=== PATIENT | male | born 1950 | race Caucasian/White ===

== ENCOUNTER 2019-02-03 08:51 | Outpatient (CLI) | payer MEDICARE, OTHER ==
--- NOTE | 2019-02-03 10:56 | ULT ---
BILATERAL RENAL ULTRASOUND WITH DOPPLER: Date: 02/03/19 HISTORY: Acute renal insufficiency and diabetes mellitus. FINDINGS: The right kidney measures 9.6 cm in length and the left kidney measures 10.6 cm in length. No focal m ass or hydronephrosis seen on either side. The urinary bladder is unremarkable. The peak systolic velocity in the right renal artery measures 70 cm/second and in the left renal bebo ry measures 81 cm/second. The renal artery to aortic ratio is measured at 1.09 on the right and 1.26 on the left. The resistive indices measure 0.58 on the right and 0.56 on the left. IMPRESSION: 1. Unremarkable renal ultrasound. 2. No evidence of hemodynamically significant stenosis. POS: [facility]
== END 2019-02-03 08:52 | disposition home or self-care (01) ==
LOC: ULT 08:51
PROVIDERS: ATTEND Internal Medicine Nephrology
DX: I12.9 Hypertensive chronic kidney disease with stage 1 through stage 4 chronic kidney disease, or unspecified chronic kidney disease (principal); E11.22 Type 2 diabetes mellitus with diabetic chronic kidney disease; N18.3 Chronic kidney disease, stage 3 (moderate); N17.9 Acute kidney failure, unspecified; I25.10 Atherosclerotic heart disease of native coronary artery without angina pectoris; E03.9 Hypothyroidism, unspecified; E78.5 Hyperlipidemia, unspecified
CPT/HCPCS: 76700; 76770

== ENCOUNTER 2020-04-06 12:21 | Outpatient (CLI) | payer MEDICARE, OTHER | END 2020-04-06 12:22 | disposition home or self-care (01) | LOC: LABBT 12:21 | PROVIDERS: ATTEND Orthopaedic Surgery | DX: Z01.812 Encounter for preprocedural laboratory examination (principal); Z11.59 Encounter for screening for other viral diseases; S52.502A Unspecified fracture of the lower end of left radius, initial encounter for closed fracture | CPT/HCPCS: 87635; U0003 ==

== ENCOUNTER 2020-04-08 09:38 | Day surgery (SDC) | payer MEDICARE, OTHER ==
[2020-04-06 15:17] VITALS: BMI 28.1
[2020-04-08] MEDS ORDERED: Fentanyl 100 MCG/2 ML VIAL ONE ×2 (10:30→10:42)
[2020-04-08] MEDS ORDERED: Midazolam HCl 2 mg/2 ml Vial ONE (10:42)
[2020-04-08 11:08] LABS: Anion Gap 13 mmol/L (10-20); BUN (Urea Nitrogen) 27 mg/dL (8.4-25.7); Calc. Creatinine Clearance 50 mL/min (70-130); Calcium 9.4 mg/dL (7.8-10.44); Carbon Dioxide 22 mmol/L (23-31); Chloride 106 mmol/L (98-107); Estimated GFR-MDRD 42; Glucose 112 mg/dL (80-115); Sodium 137 mmol/L (136-145)
--- NOTE | 2020-04-08 14:25 | RAD ---
LEFT WRIST 3 VIEWS: History ORIF left wrist. COMPARISON: Radiograph 01/03/2020. FINDINGS: Satisfactory postoperative appearance of the volar plate and screw fixation distal radial fracture. Similar appearance of the ulnar styloid fracture. IMPRESSION: Satisfactory postoperative appearance. POS: [facility]
[2020-04-08] MEDS ORDERED: Ondansetron PF 4 MG/2 ML Vial ONE (14:58)
[2020-04-08] MEDS ORDERED: EPHEDRINE 25 MG/5 ML SYRINGE ONE (14:58)
[2020-04-08] MEDS ORDERED: PROPOFOL 200 MG/20 ML VIAL ONE (14:58)
[2020-04-08] MEDS ORDERED: Lidocaine 1% PF 5 ML VIAL ONE (14:58)
[2020-04-08] MEDS ORDERED: Bupivacaine HCl 0.5%/Epinephrine 1:200,000/PF 30 ml Vial ONE (14:58)
--- NOTE | 2020-04-08 18:10 | EKG ---
Test Reason : PREOP Blood Pressure : / mmHG Vent. Rate : 067 BPM Atrial Rate : 067 BPM P-R Int : 136 ms QRS Dur : 096 ms QT Int : 390 ms P-R-T Axes : 038 -45 -07 degrees QTc Int : 412 ms Normal sinus rhythm Left axis deviation non specific T wave changes Abnormal ECG No previous ECGs available Confirmed by DR. Nubia GLASS ([id number]) on 04/08/2020 6:10:05 PM Referred By: ALBERTO Confirmed By:DR. Nubia GLASS
--- NOTE | 2020-04-09 08:57 | OP ---
DATE OF PROCEDURE: 04/08/2020 PREOPERATIVE DIAGNOSIS: Left extra-articular distal radius fracture (greater than 3 fragments). POSTOPERATIVE DIAGNOSIS: Left extra-articular distal radius fracture (greater than 3 fragments). PROCEDURE PERFORMED: Open reduction and internal fixation of right distal radius. ANESTHESIA: General and block. BUTCHER FISH: Ariel Berrios PA-C IMPLANT: Synthes 2.4 mm variable angle LCP 2-column plate. TOURNIQUET TIME: 44 minutes at 250 mmHg. COMPLICATIONS: None. DRAINS: None. SPECIMEN: None. OUTCOME: Near-anatomic alignment. INDICATIONS FOR PROCEDURE: The patient is a 69-year-old gentleman status post ground level fall sustaining a left extra-articular distal radius fracture with comminution and greater than 30 degrees of dorsal angulation. After discussion with the patient including risks and benefits, we have decided to proceed with open reduction and internal fixation. Informed consent has been obtained. I believe all questions have been answered. DESCRIPTION OF PROCEDURE: The patient was brought to the operating room and a time-out performed, followed by induction of general anesthesia. The patient was then positioned supine on the OR table with the arm on an armboard and then a sterile prep and drape was performed of this left upper extremity. Next, limb was exsanguinated with Esmarch bandage, tourniquet inflated to 250 mmHg. A volar radial skin incision was made after skin was sharply incised. Dissection was carried down between the interval of the flexor carpi radialis and brachioradialis. The neurovascular bundle was identified and reflected radially. The dissection was then carried down reflecting the flexor digitorum and exposing the pronator quadratus. This muscle was released off its radial border and reflected to the midline revealing the underlying fracture. The fracture was reduced under direct visualization, and then, a 2.4 mm variable angle LCP 2-column plate was applied to the volar cortex of the distal radius and held in place with a cortical screw proximal to the fracture. At this point, AP lateral C-arm images were obtained to confirm appropriate reduction of the fracture and appropriate positioning of the plate. Once confirmed, a total of 4 locking screws were placed in the horizontal limb of the plate capturing the distal fragment and then 2 additional cortical screws placed proximally. At the completion of this, there was islam of radial inclination, volar tilt, and radial length with appropriate positioning of hardware. The wound was then irrigated with bulb syringe and closed in layers with 0 Vicryl deep, followed by 2-0 Vicryl and nylon for the skin. Xeroform gauze, Webril, and fiberglass splint were applied to the wrist. The tourniquet was let down to completion of dressing and the patient was transferred to recovery room in stable condition. There were no complications. The patient tolerated the procedure well. Job ID: [id number]
== END 2020-04-08 14:45 | disposition home or self-care (01) ==
LOC: SDC 09:38
PROVIDERS: ATTEND Orthopaedic Surgery
PROC: 0PSJ04Z Reposition Left Radius with Internal Fixation Device, Open Approach (ICD-10-PCS; principal; 2020-04-08)
PROC: 3E0T3BZ Introduction of Anesthetic Agent into Peripheral Nerves and Plexi, Percutaneous Approach (ICD-10-PCS; 2020-04-08)
DX: S52.552A Other extraarticular fracture of lower end of left radius, initial encounter for closed fracture (principal); G89.18 Other acute postprocedural pain; F32.9 Major depressive disorder, single episode, unspecified; E11.9 Type 2 diabetes mellitus without complications; I51.9 Heart disease, unspecified; M32.9 Systemic lupus erythematosus, unspecified; Z79.4 Long term (current) use of insulin; Z79.899 Other long term (current) drug therapy; Z88.6 Allergy status to analgesic agent; Z95.0 Presence of cardiac pacemaker; W11.XXXA Fall on and from ladder, initial encounter
CPT/HCPCS: 25607; 64415; 73110; 76000; 80048; 82962; 93005; C1713 ×3; 36416; 93010; J0670; J0690; J2001; J2250; J2405; J2704; J3010

== ENCOUNTER 2024-05-12 11:13 | Outpatient (CLI) | payer MEDICARE, OTHER | END 2024-05-12 11:14 | disposition home or self-care (01) | LOC: BICRAD 11:13 | PROVIDERS: ATTEND Radiology Diagnostic Neuroimaging | DX: C61 Malignant neoplasm of prostate (principal); E11.22 Type 2 diabetes mellitus with diabetic chronic kidney disease; N18.30 Chronic kidney disease, stage 3 unspecified | CPT/HCPCS: 71046 ==

== ENCOUNTER 2024-05-20 08:43 | Outpatient (CLI) | payer MEDICARE, OTHER | END 2024-05-20 08:44 | disposition home or self-care (01) | LOC: NM 08:43 | PROVIDERS: ATTEND Urology | DX: C61 Malignant neoplasm of prostate (principal) | CPT/HCPCS: 78306; A9503 ==

== ENCOUNTER 2024-07-10 10:12 | Outpatient (CLI) | payer MEDICARE, OTHER ==
[2024-07-10 12:18] LABS: #Basophils 0.05 10x3/uL (0.0-0.2); %Basophils 0.6 % (0.0-1.0); %Eosinophils 2.6 % (0.0-10.0); %Lymphocytes 19.2 % (21.0-51.0); %Monocytes 7.1 % (0.0-10.0); %Neutrophils 70.3 % (42.0-75.0); Hematocrit 42.4 % (42.0-52.0); Hemoglobin 14.9 g/dL (14.0-18.0); Mean Corpuscular HGB CONC 35.1 g/dL (32.0-36.0); Mean Corpuscular Hemoglobin 31.6 pg (27.0-31.0); Mean Corpuscular Volume 89.8 fL (78.0-98.0); Platelet Count 160 10x3/uL (130-400); RBC Distribution Width 11.9 % (11.5-14.5); Red Blood Cell (RBC) Count 4.72 mill/uL (4.70-6.10)
[2024-07-10 12:34] LABS: PTT 28.2 sec (22.9-36.1); Prothrombin Time 13.5 sec (12.0-14.7)
[2024-07-10 12:41] LABS: ALT (SGPT) 35 U/L (8-55); AST (SGOT) 23 U/L (5-34); Albumin 4.1 g/dL (3.4-4.8); Alkaline Phosphatase 72 U/L (40-110); Anion Gap 13 mmol/L (10-20); BUN (Urea Nitrogen) 23 mg/dL (8.4-25.7); Bilirubin, Total 1.2 mg/dL (0.2-1.2); Calc. Creatinine Clearance 0 mL/min (70-130); Calcium 9.8 mg/dL (7.8-10.44); Carbon Dioxide 26 mmol/L (23-31); Chloride 108 mmol/L (98-107); Estimated GFR 51; Globulin 2.7 g/dL (2.4-3.5); Glucose 183 mg/dL (83-110); Potassium 3.5 mmol/L (3.5-5.1); Protein, Total 6.8 g/dL (5.8-8.1); Sodium 143 mmol/L (136-145)
[2024-07-10 12:44] LABS: Bacteria/HPF None Seen HPF (None Seen); Bilirubin Negative (Negative); Blood, Urine Negative (Negative); Clarity Clear (Clear); Glucose, Urine (Dipstick) 50 mg/dL (Negative); Ketone, Urine Negative (Negative); Leukocyte Negative Leu/uL (Negative); Nitrite Negative (Negative); Protein, Urine (Dipstick) 30 mg/dL (Neg-Trace); Specific Gravity, Urine 1.031 (1.002-1.036); Squamous Epithelial None Seen HPF (0-3); Urobilinogen Normal mg/dL (Less than 2); WBC/HPF 0-3 HPF (0-3); pH, Urine 5.5 (5.0-9.0)
[2024-07-10 12:46] LABS: Sperm/HPF Rare HPF (None Seen)
== END 2024-07-10 10:13 | disposition home or self-care (01) ==
LOC: LABBT 10:12
PROVIDERS: ATTEND Urology
DX: Z01.818 Encounter for other preprocedural examination (principal); C61 Malignant neoplasm of prostate; N48.1 Balanitis; R97.20 Elevated prostate specific antigen [PSA]
CPT/HCPCS: 71046; 80053; 81001; 85025; 85610; 85730; 86850; 86900; 86901; 87086; 93005; 93010

== ENCOUNTER 2024-07-24 06:20 | Inpatient (IN) | payer MEDICARE, OTHER ==
[2024-07-24] MEDS ORDERED: Lidocaine 1% (PF) 30 ML VIAL ONE (06:41)
[2024-07-24] MEDS ORDERED: Lidocaine 1% MPF 2 ML VIAL ONE (07:02)
[2024-07-24] MEDS ORDERED: Midazolam HCl 2 mg/2 ml Vial ONE (07:02)
[2024-07-24] MEDS ORDERED: EPINEPHrine 1 MG/ML VIAL ONE ×2 (07:07→09:09)
[2024-07-24] MEDS ORDERED: ceFOXitin 1 GM VIAL ONE ×3 (07:11→11:22)
[2024-07-24] MEDS ORDERED: Gentamicin 80 MG/2 ML VIAL ONE (07:11)
[2024-07-24] MEDS ORDERED: Sodium Chloride 0.9% 200 ML ONE (07:12)
[2024-07-24] MEDS ORDERED: fentaNYL PF 100 MCG/2 ML SYRINGE ONE ×3 (07:38→14:07)
[2024-07-24] MEDS ORDERED: Lidocaine 2% PF 5 ML VIAL ONE (07:38)
[2024-07-24] MEDS ORDERED: PROPOFOL 20 ML ONE (07:38)
[2024-07-24] MEDS ORDERED: Rocuronium Bromide 10 MG/ML (10ML VIAL) ONE (07:39)
[2024-07-24] MEDS ORDERED: Bupivacaine 0.25% HCL 30 ML VIAL ONE (07:50)
[2024-07-24] MEDS ORDERED: Ondansetron PF 4 MG/2 ML Vial ONE (12:01)
[2024-07-24] MEDS ORDERED: HYDROmorphone 2 MG/ML VIAL ONE (12:03)
[2024-07-24] MEDS ORDERED: Oxybutynin 5 MG TAB PO PRN (14:10)
[2024-07-24] MEDS ORDERED: diphenhydrAMINE 25 MG CAP PO PRN (14:10)
[2024-07-24] MEDS ORDERED: hydrALAZINE 20 MG/ML VIAL SLOW IVP PRN (14:10)
[2024-07-24] MEDS ORDERED: Hyoscyamine SL 0.125 MG TAB SL PRN (14:10)
[2024-07-24] MEDS ORDERED: oxyCODONE 5 MG TAB PO PRN ×2 (14:13)
[2024-07-24] MEDS ORDERED: fentaNYL 50 mcg/mL 1 mL Vial SLOW IVP PRN (15:09)
[2024-07-24] MEDS ORDERED: Promethazine HCl 25 MG/ML VIAL IM PRN (15:15)
[2024-07-24] MEDS ORDERED: Ondansetron HCl/PF 4 MG/2 ML Vial IVP PRN (15:15)
[2024-07-24 17:04] LABS: #Basophils 0.03 10x3/uL (0.0-0.2); #Eosinophils Less than 0.03 10x3/uL (0.0-0.7); %Basophils 0.2 % (0.0-1.0); %Eosinophils 0.1 % (0.0-10.0); %Monocytes 8.3 % (0.0-10.0); Hematocrit 44.2 % (42.0-52.0); Hemoglobin 14.7 g/dL (14.0-18.0); Mean Corpuscular HGB CONC 33.3 g/dL (32.0-36.0); Mean Corpuscular Hemoglobin 31.5 pg (27.0-31.0); Mean Corpuscular Volume 94.8 fL (78.0-98.0); Mean Platelet Volume 11.4 fL (7.4-10.4); Platelet Count 131 10x3/uL (130-400); RBC Distribution Width 12.2 % (11.5-14.5); Red Blood Cell (RBC) Count 4.66 mill/uL (4.70-6.10)
[2024-07-24 17:14] LABS: Anion Gap 11 mmol/L (10-20); BUN (Urea Nitrogen) 23 mg/dL (8.4-25.7); Calc. Creatinine Clearance 49 mL/min (70-130); Calcium 8.7 mg/dL (7.8-10.44); Carbon Dioxide 18 mmol/L (23-31); Chloride 113 mmol/L (98-107); Estimated GFR 47; Glucose 128 mg/dL (83-110); Potassium 4.9 mmol/L (3.5-5.1); Sodium 137 mmol/L (136-145)
[2024-07-24] MEDS: traMADol HCl 50 MG TAB PO SCH (19:13)
[2024-07-24] MEDS: Acetaminophen 500 MG TAB PO SCH (19:13)
[2024-07-24] MEDS: Ketorolac Tromethamine 30 MG (1 mL) VIAL IVP SCH (19:13)
[2024-07-24 19:54] VITALS: BMI 29.9
[2024-07-24] MEDS: QUEtiapine 100 MG TAB PO SCH (20:21)
[2024-07-24] MEDS: Docusate 100 MG CAP PO SCH (20:21)
[2024-07-24] MEDS: cefOXitin Sodium 1 GM in Sodium Chloride 0.9% 100 ML IVPB SCH (20:22)
[2024-07-24] MEDS: Sodium Chloride 0.9% 1,000 ML IV SCH (20:23)
[2024-07-24] MEDS: Ondansetron PF 4 MG/2 ML Vial IVP PRN (21:16)
[2024-07-25] MEDS: Levothyroxine Sodium 112 MCG TAB PO SCH (05:35)
[2024-07-25 05:48] LABS: #Basophils 0.04 10x3/uL (0.0-0.2); #Eosinophils Less than 0.03 10x3/uL (0.0-0.7); %Basophils 0.4 % (0.0-1.0); %Eosinophils 0.1 % (0.0-10.0); %Lymphocytes 18.6 % (21.0-51.0); %Monocytes 8.9 % (0.0-10.0); %Neutrophils 71.6 % (42.0-75.0); Hematocrit 34.7 % (42.0-52.0); Mean Corpuscular HGB CONC 34.6 g/dL (32.0-36.0); Mean Corpuscular Hemoglobin 32.3 pg (27.0-31.0); Mean Corpuscular Volume 93.5 fL (78.0-98.0); Mean Platelet Volume 11.7 fL (7.4-10.4); Platelet Count 124 10x3/uL (130-400); RBC Distribution Width 12.3 % (11.5-14.5); Red Blood Cell (RBC) Count 3.71 mill/uL (4.70-6.10)
[2024-07-25 06:20] LABS: Anion Gap 9 mmol/L (10-20); BUN (Urea Nitrogen) 25 mg/dL (8.4-25.7); Calc. Creatinine Clearance 48 mL/min (70-130); Carbon Dioxide 23 mmol/L (23-31); Chloride 109 mmol/L (98-107); Estimated GFR 43; Glucose 125 mg/dL (83-110); Potassium 4.1 mmol/L (3.5-5.1); Sodium 137 mmol/L (136-145)
[2024-07-25] MEDS: Citalopram 20 MG TAB PO SCH (09:26)
[2024-07-25] MEDS: Amlodipine 5 MG TAB PO SCH (09:27)
[2024-07-25] MEDS: Propranolol 40 MG TAB PO SCH (09:27)
[2024-07-25] MEDS: Atorvastatin Calcium 40 MG TAB PO SCH (09:27)
[2024-07-25] MEDS: Glimepiride 1 MG TAB PO SCH (09:29)
[2024-07-25] MEDS: Mag-Al 1200 mg/1200 mg/30 ML UDCUP PO PRN (21:18)
[2024-07-26 05:41] LABS: Anion Gap 7 mmol/L (10-20); BUN (Urea Nitrogen) 27 mg/dL (8.4-25.7); Calc. Creatinine Clearance 46 mL/min (70-130); Calcium 8.3 mg/dL (7.8-10.44); Carbon Dioxide 24 mmol/L (23-31); Chloride 110 mmol/L (98-107); Estimated GFR 42; Glucose 146 mg/dL (83-110); Potassium 3.9 mmol/L (3.5-5.1); Sodium 137 mmol/L (136-145)
[2024-07-26 05:43] LABS: Hematocrit 33.9 % (42.0-52.0); Hemoglobin 11.8 g/dL (14.0-18.0); Mean Corpuscular HGB CONC 34.8 g/dL (32.0-36.0); Mean Corpuscular Hemoglobin 32.2 pg (27.0-31.0); Mean Corpuscular Volume 92.4 fL (78.0-98.0); Mean Platelet Volume 11.6 fL (7.4-10.4); Platelet Count 106 10x3/uL (130-400); RBC Distribution Width 12.2 % (11.5-14.5); Red Blood Cell (RBC) Count 3.67 mill/uL (4.70-6.10)
[2024-07-27 05:02] LABS: Anion Gap 6 mmol/L (10-20); BUN (Urea Nitrogen) 24 mg/dL (8.4-25.7); Calc. Creatinine Clearance 54 mL/min (70-130); Calcium 8.6 mg/dL (7.8-10.44); Carbon Dioxide 26 mmol/L (23-31); Chloride 111 mmol/L (98-107); Estimated GFR 51; Glucose 105 mg/dL (83-110); Potassium 4.4 mmol/L (3.5-5.1); Sodium 139 mmol/L (136-145)
[2024-07-27 08:17] VITALS: BP 134/81; TEMP 97.6
== END 2024-07-27 12:05 | disposition home or self-care (01) | DRG 715 ==
LOC: SDC 06:20 → SURG A 14:10 → OBSVTOIN 07-26 09:14
PROVIDERS: ADMIT Urology; ATTEND Urology
PROC: 0VB04ZZ Excision of Prostate, Percutaneous Endoscopic Approach (ICD-10-PCS; principal; 2024-07-26)
PROC: 8E0W4CZ Robotic Assisted Procedure of Trunk Region, Percutaneous Endoscopic Approach (ICD-10-PCS; 2024-07-26)
PROC: 07BC4ZZ Excision of Pelvis Lymphatic, Percutaneous Endoscopic Approach (ICD-10-PCS; 2024-07-26)
DX: C61 Malignant neoplasm of prostate (principal); N17.9 Acute kidney failure, unspecified; E78.5 Hyperlipidemia, unspecified; E03.9 Hypothyroidism, unspecified; E11.9 Type 2 diabetes mellitus without complications; F32.A Depression, unspecified; F41.9 Anxiety disorder, unspecified; F43.10 Post-traumatic stress disorder, unspecified; I12.9 Hypertensive chronic kidney disease with stage 1 through stage 4 chronic kidney disease, or unspecified chronic kidney disease; E11.22 Type 2 diabetes mellitus with diabetic chronic kidney disease; Z95.0 Presence of cardiac pacemaker; Z88.8 Allergy status to other drugs, medicaments and biological substances; Z79.899 Other long term (current) drug therapy; Z79.84 Long term (current) use of oral hypoglycemic drugs; Z79.890 Hormone replacement therapy; N18.9 Chronic kidney disease, unspecified
CPT/HCPCS: 36415; 36416; 76770; 80048; 85025; 85027; 86850; 86900; 86901; 88305; 96374; 96375; 96376; A4333; C1713; C1776; C1889; C9250; G0378; J0171; J0665; J0694; J1170; J1580; J1642; J1885; J2001; J2250; J2405; J2704; J7030

== ENCOUNTER 2024-08-11 11:38 | Emergency (ER) | payer MEDICARE, OTHER ==
[~2024-08-11 11:38] MED LIST: Iopamidol-370 76% 500 ML MDV (1 ML CHARGE) ONE
[2024-08-11 14:50] LABS: #Basophils 0.06 10x3/uL (0.0-0.2); %Basophils 0.5 % (0.0-1.0); %Eosinophils 1.6 % (0.0-10.0); %Lymphocytes 14.7 % (21.0-51.0); %Neutrophils 69.6 % (42.0-75.0); Hematocrit 37.8 % (42.0-52.0); Hemoglobin 13.2 g/dL (14.0-18.0); Mean Corpuscular HGB CONC 34.9 g/dL (32.0-36.0); Mean Corpuscular Hemoglobin 31.8 pg (27.0-31.0); Mean Corpuscular Volume 91.1 fL (78.0-98.0); Platelet Count 173 10x3/uL (130-400); RBC Distribution Width 12.2 % (11.5-14.5); Red Blood Cell (RBC) Count 4.15 mill/uL (4.70-6.10)
[2024-08-11 15:12] LABS: ALT (SGPT) 19 U/L (8-55); AST (SGOT) 33 U/L (5-34); Albumin 3.9 g/dL (3.4-4.8); Alkaline Phosphatase 65 U/L (40-110); Anion Gap 15 mmol/L (10-20); BUN (Urea Nitrogen) 19 mg/dL (8.4-25.7); Bilirubin, Total 1.4 mg/dL (0.2-1.2); Calc. Creatinine Clearance 0 mL/min (70-130); Calcium 9.4 mg/dL (7.8-10.44); Carbon Dioxide 23 mmol/L (23-31); Chloride 104 mmol/L (98-107); Estimated GFR 54; Globulin 3.3 g/dL (2.4-3.5); Glucose 122 mg/dL (83-110); Potassium 5.1 mmol/L (3.5-5.1); Protein, Total 7.2 g/dL (5.8-8.1); Sodium 137 mmol/L (136-145)
[2024-08-11 15:14] LABS: INR-International Normal Ratio 1.2
[2024-08-11] MEDS ORDERED: Heparin 25,000 units/D5W 500 ML ONE (19:18)
[2024-08-11] MEDS ORDERED: Heparin 5,000 UNITS/ML VIAL ONE (19:18)
[2024-08-11] MEDS ORDERED: Heparin 10,000 UNITS/ 10 ML VIAL SLOW IVP SCH (19:30)
[2024-08-12 04:58] LABS: INR-International Normal Ratio 1.3; Prothrombin Time 16.5 sec (12.0-14.7)
[2024-08-12 05:29] LABS: PTT 221.7 sec (22.9-36.1)
== END 2024-08-12 09:36 | disposition short-term general hospital (02) ==
LOC: ERS 11:38
DX: I82.412 Acute embolism and thrombosis of left femoral vein (principal)
CPT/HCPCS: 71275; 80053; 85025; 85610; 85730; 93971; 96365; 96366; 99284; J1644 ×2; Q9967; 36415